=== PATIENT | male | born 1945 | race Two or more races ===

== ENCOUNTER 2025-03-06 08:48 | Emergency (ER) | payer OTHER ==
[2025-03-06 08:59] VITALS: BP 158/79; PULSE 58; RESP 16; TEMP 97.5; BMI 28.1
== END 2025-03-06 10:15 | disposition home or self-care (01) ==
LOC: JER 08:48
PROC: 0H96XZZ Drainage of Back Skin, External Approach (ICD-10-PCS; principal; 2025-03-06)
DX: L02.212 Cutaneous abscess of back [any part, except buttock and flank] (principal)
CPT/HCPCS: 10060; 99283-25